=== PATIENT | female | born 1955 | race Caucasian/White ===

== ENCOUNTER 2018-10-13 10:56 | Day surgery (SDC) | payer OTHER ==
[2018-10-13 11:54] VITALS: BMI 25.3
[2018-10-13] MEDS ORDERED: MIDAZOLAM HCL 2 MG/2 ML SINGLE DOSE VIAL ONE ×2 (12:39)
--- NOTE | 2018-10-13 13:04 | OP ---
Operative Note - Note: Operative Date: 10/13/18 Pre-Operative Diagnosis: Right renal stone Operation: Right ESWL Findings: 5 mm mid pole Right renal stone Post-Operative Diagnosis: Same as Pre-op Anesthesia: Fractional Estimated Blood Loss (mls): 0 Operative Report Dictated: Yes
[2018-10-13 14:18] VITALS: BP 115/69; PULSE 61; TEMP 97.9
--- NOTE | 2018-10-13 19:55 | OP ---
DATE OF OPERATION: 10/13/2018 PREOPERATIVE DIAGNOSIS: Right renal stone. POSTOPERATIVE DIAGNOSIS: Right renal stone. PROCEDURE: Right extracorporeal shockwave lithotripsy. ATTENDING: Lesa Gant M.D. ANESTHESIA: Fractional. DESCRIPTION OF PROCEDURE: Patient was brought in the operating room, placed in a supine position on the operating room table. Ultrasonography and fluoroscopy were performed. A 5-mm right mid pole stone was identified. At this point anesthesia and preoperative antibiotics were then administered. Shockwave lithotripsy was then performed. Excellent fragmentation of the stone was noted under real-time ultrasonography and fluoroscopy. No complications were noted. The patient tolerated the procedure very well. DISPOSITION: The patient was to recovery room. LESA LEVIN M.D. [id number]
== END 2018-10-13 14:05 | disposition home or self-care (01) ==
LOC: JASU-SURG 10:56
PROVIDERS: ATTEND Urology
PROC: 0TF3XZZ Fragmentation in Right Kidney Pelvis, External Approach (ICD-10-PCS; principal; 2018-10-13 11:45)
DX: N20.0 Calculus of kidney (principal)

== ENCOUNTER 2018-11-24 08:31 | Day surgery (SDC) | payer OTHER ==
[2018-11-21 11:45] VITALS: BMI 23.1
[2018-11-24 08:53] VITALS: TEMP 98.3
[2018-11-24] MEDS ORDERED: MIDAZOLAM HCL 2 MG/2 ML SINGLE DOSE VIAL ONE (12:22)
[2018-11-24] MEDS ORDERED: PROPOFOL 20 ML ONE ×2 (12:23)
[2018-11-24] MEDS ORDERED: oxyCODONE HCL 5 MG TABLET PO PRN (12:34)
[2018-11-24] MEDS ORDERED: ONDANSETRON 4 MG/2 ML VIAL IVPUSH PRN (12:34)
[2018-11-24] MEDS ORDERED: ACETAMINOPHEN 325 MG TABLET (FP) PO PRN (12:34)
--- NOTE | 2018-11-24 13:20 | OP ---
Operative Note - Note: Operative Date: 11/24/18 Pre-Operative Diagnosis: Left renal stone Operation: Left ESWL Findings: 4 mm lower pole left renal stone Surgeon: Gil Gant Anesthesia: Fractional Estimated Blood Loss (mls): 0 Drains, Volume Out (mls): 0 Operative Report Dictated: Yes
[2018-11-24 14:11] VITALS: BP 112/56; PULSE 60
--- NOTE | 2018-11-24 17:04 | OP ---
DATE OF OPERATION: 11/24/2018 PREOPERATIVE DIAGNOSIS: Left renal stone. POSTOPERATIVE DIAGNOSIS: Left renal stone. PROCEDURE: Left extracorporeal shock-wave lithotripsy. ATTENDING: Lesa Levin MD ANESTHESIA: General. DESCRIPTION OF PROCEDURE: Patient was brought in the operating room and placed in a supine position on the operating table. Ultrasonography and fluoroscopy were performed. A 4-mm left renal stone was identified. At this point, anesthesia and preoperative antibiotics were administered. At this point, extracorporeal shock-wave lithotripsy was started. No complications are noted; 2500 impulses at 17 joules of power were administered to the left 4-mm lower pole stone. Patient tolerated the procedure very well. No complications were noted. DISPOSITION: Patient was to recovery room. LESA LEVIN M.D. [id number]
== END 2018-11-24 14:13 | disposition home or self-care (01) ==
LOC: JASU-SURG 08:31
PROVIDERS: ATTEND Urology
PROC: 0TF4XZZ Fragmentation in Left Kidney Pelvis, External Approach (ICD-10-PCS; principal; 2018-11-24 14:00)
DX: N20.0 Calculus of kidney (principal)

== ENCOUNTER 2018-12-08 06:37 | Day surgery (SDC) | payer OTHER ==
[2018-12-05 13:41] VITALS: BMI 22.6
[2018-12-08] MEDS ORDERED: PROPOFOL 20 ML ONE ×3 (07:47)
[2018-12-08] MEDS ORDERED: MIDAZOLAM HCL 2 MG/2 ML SINGLE DOSE VIAL ONE (07:47)
[2018-12-08] MEDS ORDERED: IOHEXOL 300 MG/ML INFUS..BTL IV ONE (09:12)
[2018-12-08] MEDS ORDERED: EPHEDRINE SULFATE/0.9% NACL/PF 50 MG/10 ML SYRINGE NR ONE (09:20)
--- NOTE | 2018-12-08 09:52 | OP ---
Operative Note - Note: Operative Date: 12/08/18 Pre-Operative Diagnosis: Right ureteral stone Operation: cystoscopy/right ureteroscopic laser lithotripsy/left ureteroscopic stone basketing/right ureteral stent exchange Findings: 5+ mm stone Post-Operative Diagnosis: Same as Pre-op Surgeon: Gil Gant Anesthesia: General Specimens Removed: ureteral stone Drains & Tubes with Location: right ureteral stent 08/25 Operative Report Dictated: Yes
[2018-12-08] MEDS ORDERED: ONDANSETRON 4 MG/2 ML VIAL IVPUSH PRN ×2 (10:05→11:17)
[2018-12-08] MEDS ORDERED: LACTATED RINGERS SOLUTION 1,000 ML IV SCH (10:15)
[2018-12-08] MEDS ORDERED: ACETAMINOPHEN 325 MG TABLET (FP) PO PRN (11:17)
[2018-12-08] MEDS ORDERED: oxyCODONE HCL 5 MG TABLET PO PRN (11:17)
[2018-12-08 11:56] VITALS: TEMP 97.4
[2018-12-08 13:01] VITALS: BP 119/72; PULSE 73
--- NOTE | 2018-12-09 09:44 | OP ---
DATE OF OPERATION: 12/08/2018 PREOPERATIVE DIAGNOSIS: Right ureteral stone. POSTOPERATIVE DIAGNOSIS: Right ureteral stone. PROCEDURE: Cystoscopy, right ureteroscopic laser lithotripsy, right ureteroscopic stone basketing and right ureteral stent exchange. SURGEON: Lesa Levin MD ANESTHESIA: Fractional. OPERATION: Patient was brought in the operating room and placed in the supine position on the operating room table. General anesthesia and preoperative antibiotics were administered. At this point, the patient was placed in the dorsal lithotomy position and prepped and draped in the usual sterile manner. Cystoscopy was performed and the right ureteral stent was noted. The patient has a history of bilateral renal stones, as well as a 5+ mm distal right ureteral stone, which was noted on CAT scan. The patient had a stent placed at a previous procedure. The right ureteral stent was removed with the grasping forceps. At this point, the wire was passed proximally under fluoroscopic visualization. A retrograde pyelogram showed a distal right ureteral filling defect. Ureteroscopy was performed and a right stone was seen measuring greater than 5 mm. Laser lithotripsy of the stone was then performed utilizing the holmium laser. Once the stone was fragmented, the fragments were removed utilizing a basket under direct ureteroscopic visualization. The stone fragments were removed and sent for pathologic evaluation. With all fragments removed, a retrograde pyelogram was then performed to ensure that the ureter was without further filling defects. Ureteroscopy also showed no evidence of further filling defects or evidence of neoplasm. At this point, a 6-Bangl[place]hi 24 cm stent was placed on the right side utilizing the Seldinger technique, no complications were noted. The patient tolerated the procedure very well. LESA LVEIN M.D. [id number]
--- NOTE | 2018-12-09 17:55 | PATH ---
Surgical Pathology Report Patient Name: ADDI RODRÍGUEZ Med. Rec. #: [id number] /Age/Gender: 1955 (Age: 63) / F Account: [id number] Location: [facility] Taken: 12/08/2018 Received: 12/08/2018 Reported: 12/09/2018 Physicians: Gil Gant Specimen(s) Received FOREIGN BODY Clinical History Calculus of right kidney Final Diagnosis A. URETERAL STENT, OLD, REMOVAL: URETERAL STENT. MACROSCOPIC DIAGNOSIS. B. URETERAL STONES, RIGHT, LASER LITHOTRIPSY: URETEROLITHIASIS. MACROSCOPIC DIAGNOSIS. Electronically Signed Tawanna Chatterjee M.D. Gross Description A. Received fresh "old ureteral stent" is a light blue stent consistent with a ureteral stent, coiled in both ends, which measures 30 cm in length and 0.1 cm diameter. No soft tissue present, for gross examination only. B. Received fresh labeled "right ureteral stones" is a 0.7 x 0.4 x 0.3 cm aggregate of muir, irregular to fragmented calculi. The specimen is sent for chemical analysis. MLSZ/12/08/2018 san[facility]/12/08/2018
== END 2018-12-08 12:25 | disposition home or self-care (01) ==
LOC: JASU-SURG 06:37
PROVIDERS: ATTEND Urology
PROC: 0TF68ZZ Fragmentation in Right Ureter, Via Natural or Artificial Opening Endoscopic (ICD-10-PCS; principal; 2018-12-08 08:00)
PROC: 0T768DZ Dilation of Right Ureter with Intraluminal Device, Via Natural or Artificial Opening Endoscopic (ICD-10-PCS; 2018-12-08 08:00)
DX: N20.1 Calculus of ureter (principal)
CPT/HCPCS: 36415; 76000-TC-FY; 82360; 88300-TC; 94760